=== PATIENT | male | born 1990 | race Two or more races ===

== ENCOUNTER 2023-10-06 23:57 | Emergency (ER) | payer OTHER ==
[~2023-10-06] VITALS: Ht 177.8 cm; Wt 86.2 kg
[2023-10-07 00:19] VITALS: BP 160/90; PULSE 118; RESP 18; TEMP 98; O2SAT 100
[2023-10-07] MEDS ORDERED: ACETAMINOPHEN EXTRA STRENGTH 500 MG TAB PO ONE (05:30)
[2023-10-07] MEDS ORDERED: OLANZapine 5 MG ODT SL ONE (05:30)
[2023-10-07 05:38] VITALS: BP 155/88; PULSE 90; RESP 16; TEMP 98; O2SAT 100
== END 2023-10-07 05:38 | disposition home or self-care (01) ==
LOC: MED 23:57
DX: R51.9 Headache, unspecified (principal); R53.81 Other malaise; Z79.899 Other long term (current) drug therapy
CPT/HCPCS: 99283